=== PATIENT | female | born 1980 | race Caucasian/White ===

== ENCOUNTER 2018-10-03 06:06 | Day surgery (SDC) | payer OTHER ==
--- NOTE | 2018-08-01 07:57 | QN ---
Documentation Comment Patient is cancelled for surgery today as she is feeling sick MONICA ISAAC MD Aug 01, 2018 07:57
[2018-09-30 10:29] VITALS: Ht 167.6 cm; Wt 84.1 kg
[~2018-10-03] VITALS: Ht 167.6 cm; Wt 84.1 kg
[2018-10-03] VITALS (21 sets, daily range): BP systolic 82–112; BP diastolic 54–80; PULSE 71–112; RESP 14–29
[2018-10-03] MEDS ORDERED: POLYMYXIN/BACITRACIN 1L IRRIG ONE (06:57)
[2018-10-03] MEDS ORDERED: DESFLURANE 15 MIN ONE (07:00)
--- NOTE | 2018-10-03 07:23 | PREAC ---
Date/Time of Note Date/Time of Note DATE: 10/03/18 TIME: 07:22 Anesthesia Eval and Record Evaluation Time Pre-Procedure Interview DATE: 10/03/18 TIME: 07:22 Age 38 Sex female NPO: 8 hrs Preoperative diagnosis L ankle hardware Planned procedure L Ankle hardware removal Past Medical History Past Medical History: Includes GI: Obesity Surgery & Anesthesia Issues No known issue Meds Anticoagulation: No Beta Zia within 24 hr: No Reason Beta Zia not given: Pt. not on B-Zia Meds reviewed: Yes Allergies Coded Allergies: No Known Allergy (Unverified , 09/30/18) Allergies Reviewed: Yes Labs/Studies Labs Reviewed: Reviewed by anesthesiologist test: Negative Studies: ECG Pre-procedure Exam Airway: Adequate mouth opening, Adequate thyromental dist Mallampati: Mallampati II Teeth: Normal Lung: Normal Heart: Normal ASA Physical Status ASA physical status: 2 Emergency: None Planned Anesthetic General/MAC: ETT Nerve block: Sciatic (left) Pre-operative Attestations Prior to commencing anesthesia and surgery, the patient was re-evaluated, there was verification of: *The patient's identity *The results of appropriate recent lab work and preoperative vital signs *The above evaluation not changing prior to induction *Anesthetic plan, risk benefits, alternative and complications discussed with patient/family; questions answered; patient/family understands, accepts and wishes to proceed. SHILPA MONTES Oct 03, 2018 07:23
[2018-10-03] MEDS ORDERED: METOCLOPRAMIDE 10 MG INJ IV PRN (07:30)
[2018-10-03] MEDS ORDERED: HYDROmorphONE 1 MG/5 ML IV SYRINGE IV PRN ×2 (07:30)
[2018-10-03] MEDS ORDERED: ONDANSETRON 4 MG INJ IV PRN (07:30)
[2018-10-03] MEDS ORDERED: FENTAnyl 50 MCG/ML VIAL IV PRN ×3 (07:30)
[2018-10-03] MEDS ORDERED: DIPHENHYDRAMINE 50 MG INJ IV PRN (07:30)
[2018-10-03] MEDS ORDERED: ALBUTEROL 0.083% (NEB) 2.5 MG/3 ML AMP HHN PRN (07:30)
[2018-10-03] MEDS ORDERED: MEPERIDINE 25 MG INJ IV PRN (07:30)
[2018-10-03] MEDS ORDERED: MIDAZOLAM 1 MG/ML 2 ML INJ ONE (07:34)
[2018-10-03] MEDS ORDERED: FENTAnyl 50 MCG/ML VIAL ONE ×3 (07:34→09:27)
[2018-10-03] MEDS ORDERED: ROPIVACAINE 0.5 % 30 ML VIAL ONE (07:34)
--- NOTE | 2018-10-03 07:44 | HPN ---
Date/Time of Note Date/Time of Note DATE: 10/03/18 TIME: 07:44 Interval H&P Admission Note Pt. seen H&P reviewed: No system changes (will plan for HWR and ROXY) MONICA ISAAC MD Oct 03, 2018 07:44
[2018-10-03] MEDS ORDERED: PHENYLephrine (100 MCG/ML) 10ML SYG ONE (07:59)
[2018-10-03] MEDS ORDERED: morphine 4 MG/ML VIAL IV PRN (08:00)
[2018-10-03] MEDS ORDERED: SUCCINYLCHOLINE CHLORIDE 100 MG/5 ML SYG IV ONE (08:27)
[2018-10-03] MEDS ORDERED: NEOSTIGMINE 3 MG/3 ML SYRINGE ONE (08:27)
[2018-10-03] MEDS ORDERED: PROPOFOL 20 ML ONE (08:27)
[2018-10-03] MEDS ORDERED: CEFAZOLIN 1 GM INJ ONE (08:27)
[2018-10-03] MEDS ORDERED: ROCURONIUM 50 MG INJ ONE (08:27)
[2018-10-03] MEDS ORDERED: LIDOCAINE 100 MG SYRINGE ONE (08:27)
[2018-10-03] MEDS ORDERED: GLYCOPYRROLATE 0.4 MG INJ ONE (08:27)
[2018-10-03] MEDS ORDERED: NEOMYC/POLYMYX/BACIT 30 GM OINT TOP ONE (08:53)
--- NOTE | 2018-10-03 09:30 | NUR ---
pacu pt awake alert room air c/o pain was medicated with dilaudid per order has 20 [address] on rt wrist site clear lt ankle with dssg dry intact
--- NOTE | 2018-10-03 09:37 | OPR ---
Date/Time of Note Date/Time of Note DATE: 10/03/18 TIME: 09:35 Operative Report Procedure Date: Oct 03, 2018 Preoperative Diagnosis Left ankle painful hardware Left ankle stiffness Postoperative Diagnosis Left ankle painful hardware Left ankle stiffness Left ankle deltoid tear Operation/Procedure Performed Left ankle manipulation under anesthesia Left ankle hardware removal Left ankle deltoid repair Surgeon Nitesh Isaac MD Test Specialist None Anesthesia Type: general, other (Popliteal block) Anesthesiologist: SHILPA MONTES Tourniquet Time: 57 minutes at 250 mmHg Estimated Blood Loss: minimal Transfusion none Specimen None Grafts/Implants none Complications none Pt Condition Post Procedure: stable Disposition: PACU Indications Patient is a 38-year-old female who is status post an ORIF of a distal tibial pilon and fibular fracture and medial malleolus fracture with ongoing pain over the hardware and medial malleolus as well as stiffness. Patient was indicated for surgery Risk Note: Patient was explained the risks and benefits of surgery and the patient's [place] including not limited to infection, bleeding, injury to blood vessels, nerves, ligaments or tendons. Risks of anesthesia, deep vein thrombosis and need for reduce future surgery. Patient acknowledged these risk by signing the surgical consent form. Procedure Description Patient was met In holding area and the correct operative exam is marked and confirmed with the patient and consent. Patient with left upper operative theater and placed supine on the operative table. She was given preoperative antibiotics and preoperative regional block anesthesia. She was then given general anesthesia and then prepped and draped in the normal sterile fashion. A timeout was taken and all parties in the room agreed it was the correct patient examined and procedure. The ankle was then manipulated with both knee and the flexion and extension and dorsiflexion to pain at least 15 degrees of dorsiflexion with the knee in flexion. Tourniquet was up to 250 mmHg an incision was made over the posterior lateral aspect of fibula. Incision was brought down to the distal fibula with care to avoid any injury to the neurovascular structures. The plate was identified and screws were removed without any complication plate was then removed. The fibula was then curetted thoroughly and the wound was irrigated thoroughly and x-ray confirmed all screws and plates were removed. The wound was then closed in layers with 3-0 Vicryl followed by 3-0 Monocryl and a 4-0 Monocryl. Attention was then turned to the medial malleolus where incision was made over the medial malleolus in a rent was noted into the deltoid. Medial malleolus screw was identified and removed without any complication. X-ray confirmed the screw was removed. Wound was then irrigated and the deltoid was then repaired using a pants over vest repair using a 2-0 Vicryl. The remainder of the wound was then closed with 2-0 Vicryl followed by 3-0 Monocryl and a 4-0 Monocryl. The wound was then dressed with Steri-Strips, Xeroform and triple antibiotic ointment and placed in a well-padded compressive dressing and then into a tall ankle boot. Patient was brought to the PACU in stable condition and all sponge and needle counts were correct. She remain nonweightbearing for the next week to 2 weeks. NITESH ISAAC MD Oct 03, 2018 09:37
[2018-10-03] MEDS: HYDROmorphONE 1 MG/5 ML IV SYRINGE IV PRN ×2 (09:44→10:36)
--- NOTE | 2018-10-03 10:53 | NUR ---
pacu PT AWAKE ALERT ROOM AIR NO RESP DISTRESS MOM ON BEDSIDE NO PAIN AT THIS TIME LT ANKLE DSSG DRY INTACT REPORT GIVEN TO YING RODRIGES
[2018-10-03] MEDS ORDERED: OXYCODONE/ACETAMINOPHEN (5/325) TAB PO ONE (11:30)
--- NOTE | 2018-10-03 12:00 | NUR ---
SDS: PATIENT D/C HOME IN STABLE CONDITION, VS WITHIN NORMAL LIMITS, NO PAIN OR DISCOMFORT REPORTED. ALL D/C INSTRUCTIONS PROVIDED TO PATIENT AND FAMILY, THEY VERBALIZED UNDERSTANDING AND READINESS TO HOME. NO BLEEDING AT INCISION SITE.
--- NOTE | 2018-10-05 07:59 | PAC ---
Date/Time of Note Date/Time of Note DATE: 10/05/18 TIME: 07:59 Post-Anesthesia Notes Post-Anesthesia Note Last documented vital signs Vital Signs Date Temp Pulse Resp B/P (MAP) Pulse Ox O2 O2 Flow FiO2 Time Delivery Rate 10/03/18 98.9 71 18 111/59 98 Room Air 10:55 (76) Activity: WNL Respiratory function: WNL Cardiovascular function: WNL Mental status: Baseline Pain reasonably controlled: Yes Hydration appropriate: Yes Nausea/Vomiting absent: Yes SHILPA MONTES Oct 05, 2018 07:59
== END 2018-10-03 12:00 | disposition home or self-care (01) ==
LOC: SDS 06:06
PROVIDERS: ATTEND Orthopaedic Surgery
DX: T84.84XA Pain due to internal orthopedic prosthetic devices, implants and grafts, initial encounter (principal); Y83.8 Other surgical procedures as the cause of abnormal reaction of the patient, or of later complication, without mention of misadventure at the time of the procedure; M25.672 Stiffness of left ankle, not elsewhere classified; E66.9 Obesity, unspecified; Z68.29 Body mass index [BMI] 29.0-29.9, adult
CPT/HCPCS: 20680; 27860; 73610; 80053; 82306; 85025; 85610; 85730; 88300; J0690; J1170; J1200; J2001; J2175; J2250; J2370; J2710; J2795; J3010; Z7610